=== PATIENT | female | born 1960 | race African-American/Black ===

== ENCOUNTER 2024-05-31 06:07 | Observation (INO) ==
--- NOTE | 2024-05-02 10:43 | PAT Medication Instructions ---
Medication Instructions Date of Service May 02, 2024 Home Medications duloxetine 60 mg capsule,delayed release (Cymbalta) 60 mg PO BID hydrochlorothiazide 12.5 mg capsule 12.5 mg PO QAM ibuprofen 800 mg tablet (IBU) 800 mg PO TID tramadol 50 mg tablet 50 mg PO DAILY PRN Pain ASK your surgeon for instructions ibuprofen 800 mg tablet (IBU) 800 mg PO TID DO NOT take the morning of surgery hydrochlorothiazide 12.5 mg capsule 12.5 mg PO QAM Take morning of surgery With a small sip of water, OTHERWISE NOTHING TO EAT OR DRINK AFTER MIDNIGHT: duloxetine 60 mg capsule,delayed release (Cymbalta) 60 mg PO BID tramadol 50 mg tablet 50 mg PO DAILY PRN Pain (if needed) Take evening before surgery duloxetine 60 mg capsule,delayed release (Cymbalta) 60 mg PO BID tramadol 50 mg tablet 50 mg PO DAILY PRN Pain (if needed) Other Notes If you have any questions please call us at [phone] or [phone] or [phone] or [phone]
--- NOTE | 2024-05-09 10:20 | Anesthesiology Consultation ---
Date of Service May 09, 2024 Assessment & Plan (1) Encounter for pre-operative examination: - Outpatient joint assessment: Patient is currently scheduled for inpatient pathway. If re-evaluated and patient/surgeon requests outpatient pathway, patient is not ideal candidate for outpatient joint program from anesthesia standpoint. Chart Review Chart Review: Acceptable Risk for Surgery and Patient seen in Pre Admission Testing Teaching & Discussion Pre-Anesthesia Teaching/Discussion Notes: Instructed NPO after midnight before surgery, except medications with 15 cc of water. Medication instructions provid ed according to the PAT guidelines. History Surgery Operation Date: 06/01/24 08:50 Proposed Procedures p Right Total Hip Arthroplasty - Daniel Gonzalez MD Height/Weight Height: 4 ft 9 in Weight: 96.9 kg Allergies Allergy/AdvReac Type Severity Reaction Status Date / Time codeine Allergy Severe Itching Verified 05/09/24 10:51 Sulfa (Sulfonamide Allergy Unknown Unknown Verified 05/02/24 08:14 Antibiotics) Medications Home Medications Medication Instructions Recorded Confirmed Last Taken duloxetine 60 mg capsule,delayed 60 mg PO BID 03/31/24 05/02/24 Unknown release (Cymbalta) hydrochlorothiazide 12.5 mg capsule 12.5 mg PO QAM 03/31/24 05/02/24 Unknown ibuprofen 800 mg tablet (IBU) 800 mg PO TID 03/31/24 05/02/24 Unknown tramadol 50 mg tablet 50 mg PO DAILY PRN Pain 03/31/24 05/02/24 Unknown Past Medical History Medical History (Updated 05/09/24 @ 10:52 by Maryjane Jimenez PA-C) Anxiety Degenerative joint disease Depression Edema bilateral legs (chronic) Hyperkalemia chronic, monitored by PCP Medical marijuana use Patient denies h/o stroke, seizures, heart attack, heart failure, DM, HTN, blood clots/DVTs or blood transfusions. Exercise / Class Metabolic Activity III < 4 Walking/Shop/Light housework (denies chest discomfort or shortness of breath with usual activities, less than 8 steps in home) Past Family History Family History Other No family history of adverse response to anesthesia Past Surgical History Surgical History No pertinent past surgical history Past Anesthesia History No Family Hx of Anesthesia Complications History of PONV Hx of Motion Sickness Social History Smoking Status: Current every day smoker Smoking cigarettes per day: 20 cigarette (advised on npo policy) Do You Dip or Chew Tobacco: No Hx Alcohol Use: No Hx Substance Use: Yes Substance Use Type Other:: medical THC Last Used Substance Other:: 05/01/24 (advised on npo policy) Review of Systems Patient denies chest pain, shortness of breath, dyspnea on exertion, snoring, witnessed apneas, reflux, fever, chills, cough, wheezing, or palpitations. Physical Exam Vital Signs Vitals BP 126/83 P 61 TEMP 98.4 SP02 97% on RA RESP 18 Physical Patient resting comfortably in chair in no acute distress, alert and oriented, responding appropriately throughout visit Full cervical extension range of motion without pain TMD 3.5 finger breadths Mallampati Score 2 Dentition: removable partial and two caps, denies chipped or loose teeth, crowns, implants or bridges Lungs: normal respiratory effort. Good air movement, clear throughout to auscultation, no adventitious breath sounds Cardiac: regular rate and rhythm, no murmurs noted Carotid arteries: negative bruit bilat Lab Results Anesthesia Preop Results Results Anesthesia Widget: WBC 6.96 K/ul (4.8-10.8) 05/09/24 Hgb 11.6 g/dl (12.0-16.0) L 05/09/24 Hct 33.9 % (37.0-47.0) L 05/09/24 Plt 310 K/uL (130-400) 05/09/24 Na 137 mmol/L (136-145) 05/09/24 K 4.1 mmol/L (3.5-5.1) 05/09/24 Cl 104 mmol/L (98-107) 05/09/24 CO2 29 mmol/L (21-32) 05/09/24 BUN 21 mg/dl (6-23) 05/09/24 Creat 0.60 mg/dl (0.6-1.2) 05/09/24 Glucose Level 93 mg/dl (70-99(Fasting)) 05/09/24 PT 10.3 Seconds (9.0-12.0) 05/09/24 PTT 27 Seconds (21-31) 05/09/24 INR 0.9 (0.9-1.1) 05/09/24 Blood Type A Negative 05/09/24 Antibody Screen NEGATIVE 05/09/24 Testing Electrocardiogram Date: 05/09/24 NSR, rate 61 bpm Chest X-Ray Date: 05/09/24 No acute findings.
--- NOTE | 2024-05-26 09:37 | History & Physical Report ---
Date of Service May 26, 2024 Assessment & Plan (1) Bilateral hip joint arthritis: 63-year-old female from the [facility] with advanced bilateral hip arthritis. History of psoriasis without significant treatment. She got end- stage disease and difficulty mobilizing at all. I think it is a bit unrealistic to trying to get her BMI below 35 for surgery. She would like to have her hips fixed. Plan: We discussed treatment options. I did tell her that that her BMI she is at increased risk for complications including infection and thrombosis. She is aware this. She would like to proceed despite this. Will proceed with a right hip replacement first. The risks Mente this procedure explained and she understands. Informed consent was obtained. She will plan to stay in the hospital overnight and discharged to home with home health. Will use aspirin for DVT prophylaxis. Will likely use a Prevena VAC dressing trying to eliminate the infection risk. (2) Medical marijuana use: (3) Hyperkalemia: (4) Edema: (5) Depression: (6) Obesity: History of Present Illness Chief Complaint: . Bilateral hip pain right side greater than the left. Primary Care Provider: Christen Andino PA-C . The patient is a 63-year-old female from [facility] who presents for surgical treatment of her hips. She got about 10-year history of increasing bilateral hip pain discomfort is gradually gotten worse over time. She has been managed by [facility] sports medicine and Dr. Mary valdes after this point. She has a BMI of 46 and he told her she needed to be less than 35. She has tried to lose weight but is kind of leveled off at about 190 pounds. She used to weigh 300. She has having difficulty losing anymore. She has limited mobility. She got bi lateral leg pain. Has difficult walking any distance. She is looking for surgical treatment. The patient does have a history of psoriasis without significant underlying treatment. Allergies Allergy/AdvReac Type Severity Reaction Status Date / Time codeine Allergy Severe Itching Verified 05/09/24 10:51 Sulfa (Sulfonamide Allergy Unknown Unknown Verified 05/02/24 08:14 Antibiotics) Home Medications Medication Instructions Recorded Confirmed Type duloxetine 60 mg capsule,delayed 60 mg PO BID 03/31/24 05/02/24 History release (Cymbalta) hydrochlorothiazide 12.5 mg capsule 12.5 mg PO QAM 03/31/24 05/02/24 History ibuprofen 800 mg tablet (IBU) 800 mg PO TID 03/31/24 05/02/24 History tramadol 50 mg tablet 50 mg PO DAILY PRN Pain 03/31/24 05/02/24 History Past Med/Surg History Problem List (Updated 05/26/24 @ 09:34 by Daniel Gonzalez MD) Obesity Encounter for pre-operative examination Bilateral hip joint arthritis Medical History Medical marijuana use Degenerative joint disease Anxiety Hyperkalemia chronic, monitored by PCP Edema bilateral legs (chronic) Depression Surgical History No pertinent past surgical history Family History Other No family history of adverse response to anesthesia Social History Smoking Status: Current every day smoker Tobacco Type: Cigarettes Cigarettes Per Day: 20 cigarette (advised on npo policy); Second Hand Exposure: No; Do You Dip or Chew Tobacco: No; Tobacco Cessation Education Requested by Patient: No Hx Alcohol Use: No Hx Substance Use: Yes Last Used Substance Other:: 05/01/24 (advised on npo policy) Substance Use Type Other:: medical THC Preferred Language: Romanian Communication Ability: Effective Predatory Hunter Required: No Beliefs That Will Affect Care: None Current Living Situation: Spouse Other Information That Helps Us Care for You: No Feels Safe at Home: Yes Safety Concerns: Feels Safe At This Time Assistive Devices: Cane Assistive Devices Comment: upper partial denture Review of Systems All systems reviewed & are unremarkable except as noted in HPI & below. Physical Exam . Physical examination reveals a pleasant middle-age female comes in with wheelchair. Examination of both hips reveal patient has difficulty walking at all independently. She will walk with an assistive device. Both hips are very stiff with external rotation contractures of 15 degrees. Ligaments appear pretty equal. As she is neurologically intact. Constitutional WD/WN, vitals as above Respiratory normal respiratory effort, lungs clear to auscultation Cardiovascular RRR, no murmur, no edema Gastrointestinal (Abdomen) normal bowel sounds, soft, nontender, no hepatosplenomegaly Results & Data Results & Data Laboratory Results . Diagnostic Findings . X-rays of both hips reveal advanced bilateral hip DJD. She got severe extensive inflammatory type disease with complete loss of the joint space and cystic changes on both sides of the joint flattening of the femoral heads with significant surrounding osteophytes. Diffuse osteopenia. PG Care Time/CCT Total # of Minutes Spent Total Time Spent with Patient: Total time spent is greater than 50% in coordination of care (as documented) at patient's floor/unit and/or counseling patient: Coding Level of Care Code None Diagnoses Bilateral hip joint arthritis M16.0 Medical marijuana use Z79.899 Hyperkalemia E87.5 Edema R60.9 Depression F32.A Obesity E66.9
[2024-05-31] MEDS ORDERED: ROPIVACAINE 0.5% 5 MG/ML 30 ML VIAL ONE (06:27)
--- NOTE | 2024-05-31 06:45 | History & Physical Bridge Note ---
Date of Service May 31, 2024 History & Physical Bridge Note I have examined the patient, reviewed the History & Physical and in the interval since the performance of the History & Physical I have noted the following changes of clinical significance: no changes noted
[2024-05-31] MEDS: LR 500ML BOLUS, THEN 15ML/HR IV SCH (06:56)
[2024-05-31] MEDS: LR 60ML/HR IV SCH (07:18)
[2024-05-31] MEDS: CeleBREX 200 MG CAP PO SCH (07:20)
[2024-05-31] MEDS: ACETAMINOPHEN 500 MG TAB PO SCH ×2 (07:21→15:26)
[2024-05-31] MEDS: dexAMETHasone**PF** 10 MG/ML VIAL IV SCH (07:21)
[2024-05-31] MEDS: METOCLOPRAMIDE HCL 10 MG TABLET PO SCH (07:21)
[2024-05-31] MEDS: FAMOTIDINE 20 MG TAB PO SCH (07:21)
[2024-05-31] MEDS ORDERED: MIDAZOLAM HCL 1 MG/ML 2ML VIAL ONE (07:46)
[2024-05-31] MEDS ORDERED: PHENYLEPHRINE HCL 10 MG/ML VIAL ONE (07:48)
[2024-05-31] MEDS ORDERED: fentaNYL citrate PF 100 MCG/2 ML VIAL ONE (07:48)
[2024-05-31] MEDS ORDERED: ePHEDrine sulfate 50 MG/ML AMP ONE (07:49)
[2024-05-31] MEDS ORDERED: LIDOCAINE 2% 2 ML VIAL/AMP(20MG/ML) INFIL ONE (07:49)
[2024-05-31] MEDS ORDERED: PROPOFOL IV EMULSION 10 MG/ML 20 ML VIAL IV ONE ×2 (07:50→09:16)
[2024-05-31] MEDS ORDERED: HYDROmorphone INJ 1 MG/ML SYRINGE IV PRN (08:00)
[2024-05-31] MEDS ORDERED: ePHEDrine sulfate 50 MG/ML AMP IV PRN (08:00)
[2024-05-31] MEDS ORDERED: ONDANSETRON INJ 2 MG/ML 2 ML VIAL IV PRN ×2 (08:00→11:29)
[2024-05-31] MEDS ORDERED: ATROPINE SULFATE 0.1 MG/ML 10ML SYR IV PRN (08:00)
[2024-05-31] MEDS ORDERED: fentaNYL citrate PF 100 MCG/2 ML VIAL IV PRN (08:00)
[2024-05-31] MEDS: TRANEXAMIC ACID 1,000 MG **IV Pre-op IV SCH (08:12)
[2024-05-31] MEDS: ceFAZolin 2000MG 2,000 MG/15 ML SYR IV SCH ×2 (08:40→16:09)
[2024-05-31] MEDS: BUPIVACAINE/EPINEPHRINE 0.5% MPF 1:200,000 30 ML VIAL ONE (09:37)
--- NOTE | 2024-05-31 10:23 | Operative Report ---
PG Post Operative Report Pre & Post Diagnosis Operation Date: 05/31/24 08:50 Pre-Op Diagnosis: Right Hip Degenerative Joint Disease Post-Op Diagnosis: Right Hip Degenerative Joint Disease I identified the patient and participated in the time-out.: Yes Procedure Operation Date: 05/31/24 08:50 Actual Procedures p Right Total Hip Arthroplasty(Right) - Daniel Gonzalez MD Surgeon Daniel Gonzalez MD Manufacturing Business Analyst Jcarlos Sosa PA-C Estimated Blood Loss 100 Findings Consistent with Post-Op Diagnosis Specimens Right femoral head sent for pathology. Anesthesia Type Spinal MAC Complications none Disposition Accompanied Patient To Recovery: No Indications Patient is a 63-year-old female whose had a long history of bilateral hip pain discomfort is gotten worse over time. She got point where she had trouble walking at all. X-rays show advanced bilateral hip arthritis. She failed all conservative measures. She elected proceed with right total hip arthroplasty. Description of Procedure Operative implants consist of: 1 Biomet G7 size 52 mm acetabular shell. 2. [place] agent. 3. 6.5 cancellous acetabular screws 1 at 35 mm in length and 125 mm length. 4. Highly cross-linked polyethylene liner with a 52 mm outer diameter and 36 mm inner diameter. 5. DePuy Corailsize 11 short neck 125 degree angle femoral stem. 6. +5/36 mm ceramic articular ball. The patient was taken the operating, identified, placed on the operating table in the supine position. All conductors were appropriately padded. IV antibiotics fibra anesthesia team. A spinal anesthetic had been implemented holding area. Pritchett catheter was placed in sterile fashion. The patient was then placed in the left lateral cubitus position. An axillary roll was placed. Stool Birkett position was used for positioning. The right hip and leg were then prepped and draped in usual sterile fashion. A posterolateral approach to the right hip was then performed to a curvilinear incision centered over the greater trochanter. Sharp dissection was got through subcutaneous tissue dental of the IT band gluteal fascia. She had a very thick soft tissue envelope. The IT band gluteal fascia was incised longitudinally in line with skin incision. The underlying greater bursa was excised. The piriformis and external rotators along with the posterior hip joint capsule was then released from the posterior aspect the hip as a single layer. Great care was taken throughout the procedure protect the sciatic nerve at all times. The hip was internally rotated and dislocated. A femoral neck osteotomy cut was m onelia with a Final Cut about 10 mm above the lesser trochanter. Femoral head was removed and sent for pathology. The femur was retracted anteriorly. Attention then drawn the acetabulum. The acetabular labrum was excised. The pulmonary fat was excised. Sequential reaming the acetabulum was then performed beginning with a 43 and progressing up to 51. I reamed a little bit with a 52 reamer and then placed a 52 mm Biomet G7 acetabular shell in about 40 degrees lateral opening and 20 degrees of anteversion. It was fixed with two 6.5 screws. Of note her acetabular is fairly sclerotic. A trial liner was placed. Attention drawn the femur. The proximal femur was entered with cookie-cutter followed by canal finder. I then broached beginning with size 8 and progressing up to 11. Her cancellous bone was fairly soft we got excellent fit 11. I did not think I could fit the 12. We trialed the hip and the +5 articular ball with a short neck recreated appropriate soft tissue tension, was fully stable and recreated leg lengths pretty equal. We elect to place these implants. All trial implants were removed. An [place] agent was placed. Highly cross-linked polyethylene liner was placed. A size 11 short neck 125 degree angle KLA femoral stem was impacted in position. A +5/36 mm ceramic articular ball was placed. Hip was located and once again found to be stable. Attention drawn toward closing. The wound was irrigated close also pulsatile lavage solution. I did inject locally with 60 cc of half percent Marcaine with epinephrine. The posterior capsule and external rotators were then repaired through drill holes in the posterior trochanter with #2 Tycron suture. The IT band and gluteal fascia then closed with #1 PDS suture in a running fashion. Subcutaneous tissue then closed with 2 layers with a deep layer #2 Vicryl in the subcutaneous tissues with 2-0 Dexon suture in a buried interrupted fashion. Skin was then closed with skin lui sf. Leg was then cleaned and dried and a Prevena VAC dressing was applied to the very thick soft tissue envelope. The patient was then transferred to the recovery room in stable condition. Patient tolerated procedure well and there were no complications. Jcarlos Sosa, my physician enrichment assistant, was present for the entire procedure. His assistance was essential and required for appropriate patient positioning, prepping and draping, surgical exposure, performing the technical details of the operation, placement the implants, closure of the wound, and placement of the sterile bandage. I attest to the content of the Intraoperative Record and any orders documented therein. Any exceptions are noted below.
--- NOTE | 2024-05-31 10:51 | Anesthesiology Progress Note ---
Date of Service May 31, 2024 Anesthesia Post Procedure Vital Signs Vital Signs: Temp Pulse Pulse Resp BP BP Pulse Ox 05/31/24 10:40 36.5 C 76 18 134/82 99 05/31/24 10:30 80 18 154/88 H 94 05/31/24 10:20 73 17 147/87 H 100 05/31/24 10:11 36.3 C L 86 13 141/110 H 96 05/31/24 06:56 36.9 C 63 18 125/87 98 O2 Del Method O2 Flow Rate 05/31/24 10:40 Room Air 05/31/24 10:30 Room Air 05/31/24 10:20 Room Air 05/31/24 10:11 Oxymask 7 05/31/24 06:56 Room Air Pain Intensity Right Hip: Pain Intensity: 8 Transfer of Care Handoff Completed per policy Notes Mental Status: alert / awake / arousable and participated in evaluation Patient Amnestic to Procedure: Yes Nausea / Vomiting: adequately controlled Pain: adequately controlled Airway Patency, RR, SpO2: stable & adequate BP & HR: stable & adequate Hydration State: stable & adequate Neuraxial Anesthesia: was administered and sensory block is resolving Anesthetic Complications: no major complications apparent and Pt Satisfied with anesthetic care
--- NOTE | 2024-05-31 11:01 | XRay Report ---
XR hip 1V RT w pelvis HISTORY: 63 years-old Female IN PACU - Post Surgical right hip arthroplasty COMPARISON: 03/31/2024 TECHNIQUE: AP view of the pelvis with crosstable lateral view of the right hip FINDINGS: Unchanged appearance of the severe osteoarthritis of the left hip with chronic remodeling. Right hip arthroplasty demonstrates satisfactory alignment. Expected postoperative soft tissue swelling with de ep tissue air and lateral skin luis f. IMPRESSION: Right hip arthroplasty with expected postoperative changes. ACT 112: Negative or not required by law. The above report was generated using voice recognition software. It may contain grammatical, syntax o r spelling errors. Electronically signed by: Javed Pierce M.D. 05/31/2024 11:00 AM
--- OUTSIDE RECORDS SUMMARY | 2024-05-31 11:03 | External Medical Summary | Continuity of Care Document ---
Author Name Unknown Organization [facility] [id number] [place], [place] [id number] Care Team Providers Care Hr Associate Name Role Phone Christen Andino Primary Care Physician [phone] [id number] Date(s): 05/26/24 - 05/26/24 [place] [id number], [address] [place] [address] [phone] Discharge Disposition: Home or Self Care Attending Physician: LANEY Andino Jessica A Allergies, Adverse Reactions, Alerts Substance Criticality Severity Reaction Reaction Severity Status codeine Unable to assess criticality Mild Hives Active PCN (penicillin) Unable to assess criticality Moderate Hives Active Immunizations Given and Recorded Vaccine Date Status Refusal Reason hepatitis B adult vaccine 08/14/21 Recorded hepatitis B adult vaccine 03/18/21 Recorded hepatitis A adult vaccine 08/14/21 Recorded hepatitis A-hepatitis B vaccine 02/12/21 Recorded Medications diclofenac sodium 75 mg oral delayed release tablet Start: 11/10/23 3:25:00 PM EDT, 1 tab, PO, bid, Disp# 60 tab, Refills: 2, PRN: as needed for pain, Pharmacy: [id number] Start Date: 11/10/23 Stop Date: 02/08/24 Status: Ordered DULoxetine 60 mg oral delayed release capsule Start: 10/26/23 3:57:00 PM EDT, 2 cap, PO, Daily, Disp# 180 cap, Refills: 3, Pharmacy: [id number] Start Date: 10/26/23 Stop Date: 10/20/24 Status: Ordered hydroCHLOROthiazide 12.5 mg oral capsule Start: 06/15/23 9:21:00 AM EST, 1 cap, PO, Daily, Disp# 90 cap, Refills: 3 Start Date: 06/15/23 Stop Date: 06/09/24 Status: Ordered ibuprofen 800 mg oral tablet Start: 03/23/24 8:15:00 AM EST, 1 tab, PO, tid, Disp# 90 tab, Refills: 2, PRN: NEEDED FOR ARTHRITIS FOR, Pharmacy: [id number] Start Date: 03/23/24 Stop Date: 06/21/24 Status: Ordered Medical Marijuana Start: 07/21/23 9:08:00 AM EDT Start Date: 07/21/23 Status: Ordered traMADol 50 mg oral tablet Start: 05/02/24 8:29:00 AM EST, 1 tab, PO, q12h, Disp# 60 tab, Refills: 2, Pharmacy: [id number] Start Date: 05/02/24 Stop Date: 07/31/24 Status: Ordered Zepbound 12.5 mg/0.5 mL subcutaneous solution Start: 01/11/24 10:24:00 AM EDT, 12.5 mg =, subQ, q7days, Disp# 2 mL, Refills: 5, Pharmacy: [id number] Start Date: 01/11/24 Status: Ordered Zepbound 15 mg/0.5 mL subcutaneous solution Start: 01/01/24 12:49:00 PM EDT, 15 mg =, subQ, q7days, Disp# 2 mL, Refills: 5, Pharmacy: [id number] Start Date: 01/01/24 Status: Ordered Zepbound Pen 15 mg/0.5 mL subcutaneous solution Start: 01/21/24 7:23:00 AM EDT, 15 mg =, subQ, q7days, Disp# 2 mL, Refills: 5, Pharmacy: [id number] Start Date: 01/21/24 Status: Ordered Problem List Condition Confirmation Course Effective Dates Status H ealth Status Informant Adjustment disorder with depressed mood Confirmed Active Chronic hepatitis C Confirmed Active Chronic hyperkalemia Confirmed Active Tobacco use Confirmed Active Lung cancer screening declined by patient Confirmed Active Osteoarthritis of hips, bilateral Confirmed Active Class 3 severe obesity with serious comorbidity and body mass index (BMI) of 45.0 to 49.9 in adult Confirmed Active Procedures Procedure Date Related Diagnosis Body Site Status Hip X-ray 1 07/02/23 Completed None Completed [address] [place] [address] IMPRESSION 1 Severe joint space narrowing of the bilateral femoral acetabular joints with chronic remodeling, subchondral sclerosis and cystic changes versus articular erosions. 2 There is associated articular flattening of the bilateral fermoral heads 3. No acute fracture or dislocation Social History Social History Type Response Tobacco Current every day sm oker, Cigarettes, 20 per day. 40 year(s). Smoking Status Current every day li ght smoker Sex Female Sex Representation Female (finding) Patient Care team information Care Team Personnel Name: LANEY Andino, Christen Saba Position: Physician Asst Garza - Family Med Member Role: Primary Care Provider Address: [address] [place] [address] [address] [place] [address] [place]
--- OUTSIDE RECORDS SUMMARY | 2024-05-31 11:03 | External Medical Summary | Summary of Care ---
Author Name Unknown Organization [facility] Address [address] [place] [address] Phone [phone] Care Team Providers Care Ink Technician Name Role Phone Unavailable Primary Care Provider Unavailabl e Encounter Details Date Type Department Care Team (Late st Contact Info) Description 05/12/2024 Population Health External Data Unspecified Department Allergies No known active allergiesdocumented as of this encounter (statuses as of 05/12/2024) Medications Ibuprofen 800 MG Oral Tablet (Motrin)Indications :Chronic low back pain, unspecified back pain laterality, unspecified whether sciatica present Take 1 Tablet by mouth every 8 hours as needed for Pain, Moderate (Take with food.). 180 Tablet 3 Active DULoxetine HCl 60 MG Oral Capsule Delayed Release Particles (Cymbalta)Indicatio ns:Fibromyalgia,Ost eoarthritis of both hips, unspecified osteoarthritis type Take 1 Capsule by mouth in the morning and 1 Capsule before bedtime. Do not cut, crush or chew. 180 Capsule 3 Active hydroCHLOROthiazide 12.5 MG Oral Capsule (Hydrodiuril)Indica tions:Leg edema Take 1 Capsule by mouth in the morning. 90 Capsule 3 Active documented as of this encounter (statuses as of 05/12/2024) Active Problems Problem Noted Date Diagnosed Date Primary osteoarthritis involving multiple joints 11/18/2022 Lymphedema 11/18/2022 Morbid obesity due to excess calories 05/15/2022 Fibromyalgia 05/15/2022 Depressive disorder 05/15/2022 Osteoarthritis of both hips 05/15/2022 Leg edema 05/15/2022 Hepatitis C virus infection cured after antiviral drug therapy 07/26/2021 Overview (07/26/2021): HCV treated; SVR confirmed 07/25/2021 Calculus of gallbladder with out cholecystitis without obstruction 02/14/2021 Body mass index (BMI) of 45.0 to 49.9 in adult 1 Overview: Per Obesity protocol - Per Obesity protocol Medical marijuana use 05/18/2020 Wears dentures 05/18/2020 Allergic rhinitis 01/18/2018 Chronic obstructive pulmonary disease 01/18/2018 Fibromyositis 01/18/2018 Morbid Obesity, BMI not known 06/30/2009 Overview (06/30/2009): 06/2009: 62 Chronic low back pain Overview (06/30/2009): [facility], PCP Dr Cotter documented as of this encounter (statuses as of 05/12/2024) Resolved Problems Problem Noted Date Diagnosed Date Resolved Date Chronic hepatitis C without hepatic coma 02/14/2021 07/26/2021 Overview (07/26/2021): HCV treated; SVR confirmed 07/25/2021 Bilateral hip joint arthritis 02/14/2021 05/15/2022 Body mass index (BMI) of 40. 0 to 44.9 in adult 12/31/2020 01/31/2021 Overview: Per Obesity protocol Edema 05/15/2022 documented as of this encounter (statuses as of 05/12/2024) Immunizations Name Administration Dates Next Due HEP A - Hepatitis A (Adult > 18 yrs) 08/14/2021 HepA Inact/HepB Recomb>=18yrs old 02/12/2021 Hepatitis B, 20+ yrs 08/14/2021,03/18/2021 documented as of this encounter Social History Tobacco Use Types Packs/Day Years Used Date Smoking Tobacco: Former Smokeless Tobacco: Never Alcohol Use Standard Drinks/Week Comments Not Currently 0 (1 standard drink = 0.6 oz pur e alcohol) once a year PHQ-2 Answer Date Recorded PHQ Adult Total Score 0 11/18/2022 Hunger Vital Sign Answer Date Recorded Within the past 12 months, y ou worried that your food would run out before you got the money to buy more. Never true 11/19/19 23 Within the past 12 months, t he food you bought just didn't last and you didn't have money to get more. Never true 11/18/2022 Childcare Answer Date Recorded Do you feel overwhelmed with taking care of a child, family member or friend? No 11/18/2022 Does your family need help f inding childcare? (Household - for ages 0-17 years) Not on file 11/18/2022 Clothing Answer Date Recorded Have you been unable to get clothing when it was really needed? No 11/18/2022 Is your family able to get c lothes or diapers when needed? (Household - for ages 0-17 years) Not on file 11/18/2022 Personal Safety Answer Date Recorded Do you feel unsafe or have concerns for your saf ety? No 11/18/2022 Do you have concerns for you r family's safety? (Household - for ages 0-17 years) Not on file 11/18/2022 Utilities Answer Date Recorded Do you have trouble paying y our heating, water, or electric bill? (Adult - for ages 18 years and over) Not on file 11/20/2023 Is your family able to pay t he heat, water, or electric bill? (Household - for ages 0-17 years) Not on file 11/20/2023 Does your family have access to good internet? (Household - for ages 0-17 years) Not on file 11/20/2023 Employment Status Answer Date Recorded Are you unemployed or without regular income? No 11/18/2022 Does the household have a re gular source of income? (Household - for ages 0-17 years) Not on file 11/18/2022 Social Connections Answer Date Recorded How often do you feel lonely or isolated from those around you? (Adult - for ages 18 years and over) Not on file 11/20/2023 Financial Resource Strain Answer Date R ecorded Do you have any trouble payi ng for your medications, or do you think you might in the future? No 11/18/2022 Does your family have troubl e paying for medicine? (Household - for ages 0-17 years) Not on file 11/18/2022 Transportation Needs Answer Date Record ed READ ONLY Do you have troubl e getting a ride to medical visits or work? Never True 11/18/2022 Does your family have a hard time getting a ride to doctors visits? (Household - for ages 0-17 years) Not on file 11/18/2022 Has lack of transportation k ept you from medical appointments, meetings, work, or from getting things needed for daily living? Check all that apply. (Adult - for ages 18 years and over) Not on file 11/18/2022 Do you (or your family) have trouble finding or paying for a ride (transportation)? (Household - for ages 0-17 years) Not on file 11/18/2022 Housing Stability Answer Date Recorded Do you currently live in a s helter or have no steady place to sleep at night? No 11/18/2022 READ ONLY Do you think you a re at risk of becoming homeless? No 11/18/2022 Does your family worry about paying for your home or becoming homeless? (Household - for ages 0-17 years) Not on file 0 11/18/2022 Are you homeless or worried that you might be in the future? (Adult - for ages 18 years and over) Not on file Are you (or your family) hanane eless or worried that you might be in the future? (Household - for ages 0-17 years) Not on file Food Insecurity Answer Date Recorded Do you need food for this week? No 11/18/2022 Are you able to get enough f ood for your family? (Household - for ages 0-17 years) Not on file 11/18/2022 Does your family need food t his week? (Household - for ages 0-17 years) Not on file 11/18/2022 Do you always have enough fo od for your family? (Household - for ages 0-17 years) Not on file 11/18/2022 Comments No Sex and Gender Information Value Date Recorded Sex Assigned at Female 05/18/2020 7:26 AM EST Legal Sex Female 7:02 AM EST Gender Identity Female 05/18/2020 7:26 AM EST Sexual Orientation Straight 05/18/2020 7: 26 AM EST documented as of this encounter Plan of Treatment Health Maintenance Due Date Last Done Comments Alpha-1 Antitrypsin 1979 O2 ASSESSMENT COMPLETED IN PAST YEAR FOR COPD 1979 DTap/Tdap Vaccines (1 - Tdap) 1980 Pneumococcal Vaccine: 50+ Years (1 of 2 - PCV) 1980 Pneumococcal Vaccine: Pediatrics (0 to 5 Years) and At-Risk Patients (6 to 18 Years and 19+ Years) (1 of 2 - PCV) 1980 Colonoscopy 2006 Fecal Occult Blood Test 2006 Sigmoidoscopy 2006 Zoster Vaccines (1 of 2) 2011 Lipid Panel 12/20/2019 12/19/2014 Cologuard 03/16/2021 03/16/2018, 03/04/2018 Colorectal Cancer Screening 03/16/2021 *COPD SEVERITY VERIFIED BY PFT 01/14/2023 *CXR OR CT FOR COPD EVER 01/14/2023 Depression Monitoring 11/19/2023 11/18/2022 COVID-19 Vaccine ( - season) 2023 Influenza Vaccine (FLU shot) (#1) 2023 03/02/2008 Mammogram 12/20/2023 12/19/2022, 06/24/2016 Diabetes Screening 04/26/2024 04/26/2021, 1 05/26/2020, 12/11/2020, Additional history exists Pap Smear Discontinued 06/29/2009, 06/29/2009 Hepatitis B Vaccine Completed 08/14/2021, 03/18/2021, 02/12/2021, Additional history exists HPV (Gardasil) Vaccine Aged Out No lo nger eligible based on patient's age to complete this topic MENINGOCOCCAL (MENACTRA/MENVEO) Aged Out No longer eligible based on patient's age to complete this topic documented as of this encounter Medical Devices Not on filedocumented as of this encounter
[2024-05-31] MEDS ORDERED: HYDROmorphone INJ 0.5 MG/0.5 ML SYR IV PRN (11:29)
[2024-05-31] MEDS ORDERED: NALOXONE HCL 0.4 MG/1 ML VIAL/CARP IV PRN (11:29)
[2024-05-31] MEDS ORDERED: MAGNESIUM HYDROXIDE SUSP 30 ML UDC PO PRN (11:29)
[2024-05-31] MEDS ORDERED: bisacodyL 10 MG SUPP PR PRN (11:29)
[2024-05-31] MEDS ORDERED: traMADol HCL 50 MG TABLET PO PRN (11:29)
[2024-05-31] MEDS ORDERED: METOCLOPRAMIDE HCL INJ 5 MG/ML 2 ML VIAL IV PRN (11:29)
[2024-05-31] MEDS ORDERED: ALUMINUM/MAGNESIUM SUSP 30 ML UDC PO PRN (11:29)
[2024-05-31] MEDS: KETOROLAC 30 MG/ML VIAL IV SCH (12:32)
[2024-05-31] MEDS ORDERED: ACETAMINOPHEN 500 MG TAB PO SCH (14:00)
[2024-05-31] MEDS: TRANEXAMIC ACID / 0.7% NACL 1,000 MG/100 ML BAG IV SCH (16:09)
[2024-05-31] MEDS: ASCORBIC ACID 500 MG TAB PO SCH (16:10)
[2024-05-31] MEDS ORDERED: SENNA 8.6 MG TAB PO SCH (21:00)
[2024-05-31] MEDS: ASPIRIN 81 MG ECTAB PO SCH (22:07)
[2024-05-31] MEDS: DULoxetine HCL 60 MG CAP PO SCH (22:07)
[2024-05-31] MEDS: SENNA 8.6 MG TAB PO SCH (22:07)
[2024-05-31] MEDS: DOCUSATE SODIUM 100 MG CAP PO SCH (22:07)
[2024-06-01] MEDS: MULTIVITAMIN TAB PO SCH (07:38)
[2024-06-01] MEDS: dexAMETHasone 10 MG in SYRINGE 0 ML IV SCH (07:38)
[2024-06-01] MEDS: hydroCHLOROthiazide 25 MG TAB PO SCH (07:38)
[2024-06-01 08:01] LABS: Basophils # (auto) 0.03 K/uL (0.00-0.20); Basophils % (auto) 0.3 %; Eosinophils # (auto) 0.04 K/uL (0.00-0.50); Eosinophils % (auto) 0.5 %; Hematocrit (blood only) 29.4 % (37.0-47.0); Immature Granulocytes # (auto) 0.03 K/uL (0.01-0.20); Immature Granulocytes % (auto) 0.3 %; Lymphocytes # (auto) 2.24 K/uL (1.20-3.40); Lymphocytes % (auto) 25.9 %; Mean Corpuscular Hemoglobin 29.4 pg (25.0-34.0); Mean Corpuscular Volume 86.5 fL (80.0-100.0); Mean Platelet Volume 10.2 fL (9.4-12.4); Monocytes # (auto) 0.96 K/uL (0.11-0.59); Monocytes % (auto) 11.1 %; Neutrophils # (auto) 5.36 K/uL (1.40-6.50); Neutrophils % (auto) 61.9 %; Platelet Count 263 K/uL (130-400); RDW Coefficient of Variation 12.7 % (11.5-14.5); White Blood Count 8.66 K/ul (4.8-10.8)
[2024-06-01 08:23] LABS: BUN Creatinine Ratio 42.9 (10-20); Calcium 8.7 mg/dl (8.6-10.3); Creatinine Clr Calc Pharmacy 87.8 ml/min; Potassium 3.8 mmol/L (3.5-5.1)
--- NOTE | 2024-06-01 10:18 | Orthopedic Progress Note ---
Date of Service June 01, 2024 Assessment & Plan (1) Status post right hip replacement: Assessment: Status post right total hip arthroplasty. Plan: Overall, she is doing quite well today with good pain control right hip. She will work with physical therapy later this morning to work on ambulation and range of motion exercises. She is on aspirin for DVT prophylaxis. She can be discharged home later this morning pending formal physical therapy evaluation recommendation. Her wound VAC should remain in place for 7 days. Prescriptions were sent prior to surgery. No questions today about her prescriptions. She will follow-up with Dr. Gonzalez in 2 weeks for continued postoperative management or sooner if needed. She verbalized understanding and agrees with this plan. Earline Simon was seen this morning resting comfortably in no apparent distress. She notes that her pain is well-controlled to the right hip this morning. She has been up and out of bed without significant issues. She has yet to work physical therapy this morning. She denies any concerns with her surgical incision site. She denies any active bleeding, discharge, or signs of infection. She does note that the wound VAC is maintaining negative pressure. She denies any other concerns today. Review of Systems All systems reviewed & are unremarkable except as noted in HPI & below. Physical Exam . On physical examination of the right hip, her dressings are clean, dry, intact with the wound VAC maintaining negative pressure with no signs of active bleeding, discharge, or signs of infection. No tenderness to palpation. Her leg is out in full extension. Limited range of motion and strength secondary to postoperative stiffness and soreness. Calf soft nontender to palpation. Negative Homans' sign. +2 DP and PT pulses. Less than 2-second capillary refill. Normal sensation. Neurovascular intact. Results & Data Results & Data Laboratory Results . Diagnostic Findings . Hip/Pelvis X-Ray 05/31/24 10:17 XR hip 1V RT w pelvis HISTORY: 63 years-old Female IN PACU - Post Surgical right hip arthroplasty COMPARISON: 03/31/2024 TECHNIQUE: AP view of the pelvis with crosstable lateral view of the right hip FINDINGS: Unchanged appearance of the severe osteoarthritis of the left hip with chronic remodeling. Right hip arthroplasty demonstrates satisfactory alignment. Expected postoperative soft tissue swelling with deep tissue air and lateral skin luis f. IMPRESSION: Right hip arthroplasty with expected postoperative changes. ACT 112: Negative or not required by law. The above report was generated using voice recognition software. It may contain grammatical, syntax or spelling errors. Electronically signed by: Javed Pierce M.D. 05/31/2024 11:00 AM PG Care Time/CCT Total # of Minutes Spent Total Time Spent with Patient: Total time spent is greater than 50% in coordination of care (as documented) at patient's floor/unit and/or counseling patient: Coding Level of Care Code 62418 Post Operative Follow-Up Diagnoses Status post right hip replacement Z96.641
--- NOTE | 2024-06-01 10:20 | Discharge Summary ---
Date of Service June 01, 2024 Admission HPI (Per Admitting) . The patient is a 63-year-old female from [facility] who presents for surgical treatment of her hips. She got about 10-year history of increasing bilateral hip pain discomfort is gradually gotten worse over time. She has been managed by [facility] sports medicine and Dr. Hernandez off after this point. She has a BMI of 46 and he told her she needed to be less than 35. She has tried to lose weight but is kind of leveled off at about 190 pounds. She used to weigh 300. She has having difficulty losing anymore. She has limited mobility. She got bilateral leg pain. Has difficult walking any distance. She is looking for surgical treatment. The patient does have a history of psoriasis without significant underlying treatment. Admission Exam (Per Admitting) . Physical examination reveals a pleasant middle-age female comes in with wheelchair. Examination of both hips reveal patient has difficulty walking at all independently. She will walk with an assistive device. Both hips are very stiff with external rotation contractures of 15 degrees. Ligaments appear pretty equal. As she is neurologically intact. Principal Diagnosis Same as "Discharge Diagnosis" noted below under Discharge Instructions. Discharge Exam . On physical examination of the right hip, her dressings are clean, dry, intact with the wound VAC maintaining negative pressure with no signs of active bleeding, discharge, or signs of infection. No tenderness to palpation. Her leg is out in full extension. Limited range of motion and strength secondary to postoperative stiffness and soreness. Calf soft nontender to palpation. Negative Homans' sign. +2 DP and PT pulses. Less than 2-second capillary refill. Normal sensation. Neurovascular intact. Discharge Data Procedures Performed Operation Date: 05/31/24 08:50 Actual Procedures p Right Total Hip Arthroplasty(Right) - Daniel Gonzalez MD Hospital Course (1) Status post right hip replacement: On May 31, 2024 [facility] arrived at [facility] and underwent a right total hip arthroplasty performed by Dr. Gonzalez with no complications. She had a spinal anesthetic. Postoperatively, she was started on aspirin for DVT prophylaxis and transferred to the general orthopedic floor in stable condition. Her hospital course was uneventful. On postoperative day #1, her vital signs are stable and her pain was well-controlled. She participated well physical therapy working on ambulation and range of motion exercises. She was then discharged home in stable condition. She will follow-up with Dr. Gonzalez in 2 weeks for continued postoperative management or sooner if needed. PG Care Time/CCT Total # of Minutes Spent Total Time Spent with Patient: Total time spent is greater than 50% in coordination of care (as documented) at patient's floor/unit and/or counseling patient: Discharge Plan Discharge Items Patient Disposition: Home - Home Health Services Reason For Visit: Right Hip Osteoarthritis Discharge Diagnosis: Right HIp Replacement Activity: Per Instructions section Activity Comment: Follow/Obey hip precautions at all times. Weightbearing: Full weightbearing Weightbearing Comment: Weightbear as tolerated obeying hip precautions at all times. Non-emergency contact: Surgeon Call non-emergency contact if: you have any medication questions Follow-up/Referrals: Christen Andino PA-C [Primary Care Provider] - Diet: Regular Addtl Attending Provider Instructions: ACTIVITY RECOMMENDATIONS: Diet: * You may resume previous diet. Physical Therapy: * Aggressive physical therapy is not usually needed. You will learn to take care of yourself safely and walk. * Follow the "Hip Precautions Instructions." * In some cases, the forensic social worker at the hospital will arrange to have a therapist come to your house for the first couple of weeks to help you learn these skills. * You need to practice on your own or with the help of a family member as needed. * When you learn these skills, most of the therapy can be done on your own. Home Exercise: * You were shown a series of exercises in the hospital. Do these exercises three to four times each day including the exercises you were shown in physical therapy. Walking: * Get up and walk several times each day. For the first four weeks, try not to stand or walk for more than one hour at a time. If you do stand or walk for more than one hour, you will not hurt anything, but your leg will likely swell. * As you feel comfortable, you may change from the walker or crutches to a cane and then to independent walking. MEDICATIONS: New Medicine: * You will likely be taking one or more of these medicines: 1. Tramadol - Take, as directed, when you need it, every six hours to control your pain. 2. Aspirin - Thins your blood to lessen the chance of forming a blood clot. * The most common side effects of pain medicine and iron are nausea and constipation. If nausea or constipation is too much of a problem or if you have any questions about your new medicines or doses, call [facility] at . We will try to help you manage these issues. "VERY IMPORTANT TO READ AND REVIEW" Pain: * The immediate post-operative period after hip replacement surgery is often quite painful. * You are given a prescription for pain medicine. You should take it, as directed, when you need it, especially before physical therapy and before going to bed. Pain that interferes with sleep is very common and can last several months. * You will likely need pain medicine for the first two to four weeks. It will not stop all of the pain. The pain will lessen and as you feel better, you may change to milder pain medicine such as Tylenol. * The most common side effects of pain medicine are nausea and constipation, so don't take more than you need. SPECIAL CARE INSTRUCTIONS: TEDs/Elastic Stockings: * The white elastic stockings help limit swelling and prevent blood clots from forming in your legs. The more you wear them, the more they work. * Wear them for six weeks. Incision Site Care: * Remove dressing postoperative day 8 and then shower. Keep direct shower pressure off the incision site. Home Health can help removing Proveena VAC * After showering, cover luis f with dry gauze and change daily or more frequently if the dressing is getting saturated with drainage. * May completely stop using bandage if wound is dry and no drainage * [place] are removed between 2 and 3 weeks post-op. If your follow-up appointment is made before 2 weeks, please have your appointment re- scheduled. It is too early to remove the luis f. Prevention of Infection: * Take antibiotics one hour before any dental cleaning, dental work, urological procedure, gastrointestinal procedure or any invasive surgery in order to prevent your new joint from getting infected. * You may get the antibiotics from the doctor performing the procedure or you may call our office at before and we will call in a prescription to the pharmacy of your choice. Things to Watch For: * Drainage from the incision site that occurs more than one week after your surgery. * Severely increased leg pain or swelling. * Increased redness at the incision site. * Fever above 102 degrees Fahrenheit. * Unusual chest pain or shortness of breath. * Unusual pain or burning with urination. Call [facility] at with any of the above problems or if you have any questions about your medicines or recovery. FOLLOW UP VISIT: Make an appointment to see your doctor for approximately two weeks after surgery for a progress check and staple removal by calling the office at . Pending Studies at Discharge: No Stand-Alone Forms: My [facility], Smoking Cessation Medications and DC Order Prescriptions: Continued tramadol 50 mg tablet 50 - 100 mg PO Q6 PRN (Reason: pain) Qty: 40 0RF Rx Instructions: Take as needed for pain ondansetron 4 mg tablet,disintegrating 4 mg PO Q8 PRN (Reason: nausea) Qty: 20 1RF Rx Instructions: Take as needed for nausea ketorolac 10 mg tablet 10 mg PO Q6 5 Days Qty: 20 0RF Rx Instructions: Take 4 times per day with food for 5 days to lessen pain and swelling. sennosides [Senokot] 8.6 mg tablet 8.6 mg PO BID 14 Days Qty: 28 0RF Rx Instructions: Take two times a day to prevent/treat constipation acetaminophen [Tylenol Extra Strength] 500 mg tablet 1,000 mg PO TID 30 Days Qty: 180 0RF Rx Instructions: Take 3 times per day to lessen pain. aspirin [Shira Low Dose Aspirin] 81 mg tablet,delayed release (DR/EC) 81 mg PO BID 45 Days Qty: 90 0RF Rx Instructions: Take to prevent blood clots. duloxetine [Cymbalta] 60 mg capsule,delayed release(DR/EC) 60 mg PO BID hydrochlorothiazide 12.5 mg capsule 12.5 mg PO QAM tramadol 50 mg tablet 50 mg PO DAILY PRN (Reason: Pain) Discontinued ibuprofen [IBU] 800 mg tablet 800 mg PO TID Admission Data Admit Date/Time: 05/31/24 10:17 Attending Provider: Daniel Gonzalez Admit Provider: Daniel Gonzalez Primary Care Provider: Christen Andino Other Providers: [facility],Home Health Other Interventions: Discharge Summary Assessment (RN) Last Done: 06/01/24 09:09
== END 2024-06-01 10:45 | disposition home health service (06) ==
LOC: ASU 06:07 → 3N 06:07